=== PATIENT | male | born 1940 | race Caucasian/White ===

== ENCOUNTER 2019-12-15 11:11 | Outpatient (CLI) | payer MEDICARE, BC ==
[~2019-12-15 11:11] MED LIST: REGADENOSON 0.4 MG/5 ML SYRINGE ONE
[2019-12-15 13:12] LABS: ALANINE AMINOTRANSFERASE 24 U/L (12-78); ALBUMIN 3.8 g/dL (3.4-5.0); ANION GAP 5 mmol/L (5-15); CALCIUM 9.6 mg/dL (8.5-10.1); CHLORIDE 109 mmol/L (98-107)
[2019-12-15 13:15] LABS: ALKALINE PHOSPHATASE 137 U/L (45-117); CHOL/HDL RATIO 2.2; CHOLESTEROL, TOTAL 115 mg/dL (140-239); CREATININE 1.43 mg/dL (0.7-1.3); HDL CHOL % 45 % (26-37); HDL CHOLESTEROL (DIRECT) 52 mg/dL (40-60); LDL CHOLESTEROL,CALCULATED 50 mg/dL (54-169); TOTAL PROTEIN 7.7 g/dL (6.4-8.2); TRIGLYCERIDES 64 mg/dL (50-200); VLDL CHOLESTEROL 13 mg/dL (0-25)
[2020-01-09] MEDS ORDERED: OMEP20TA62 PO (00:40)
[2020-01-09] MEDS ORDERED: CIPR500T87 PO (12:06)
== END 2019-12-15 23:59 | disposition home or self-care (01) ==
LOC: CFH 11:11
PROVIDERS: ATTEND Internal Medicine Cardiovascular Disease
DX: I48.91 Unspecified atrial fibrillation (principal); I25.2 Old myocardial infarction; E78.2 Mixed hyperlipidemia; I71.4 Abdominal aortic aneurysm, without rupture; I10 Essential (primary) hypertension; R01.1 Cardiac murmur, unspecified
CPT/HCPCS: 36415; 78452; 80053; 80061; 93017; A9502; J2785

== ENCOUNTER → 2019-12-17 | Outpatient (CLI) | payer MEDICARE, BC | END | disposition home or self-care (01) | LOC: CFH 08:26 | PROVIDERS: ATTEND Internal Medicine Cardiovascular Disease | DX: I08.3 Combined rheumatic disorders of mitral, aortic and tricuspid valves (principal); I48.91 Unspecified atrial fibrillation; I11.9 Hypertensive heart disease without heart failure | CPT/HCPCS: 93306 ==

== ENCOUNTER 2019-12-22 08:53 | Day surgery (SDC) | payer MEDICARE, BC ==
[~2019-12-22] VITALS: Ht 179.1 cm; Wt 77.3 kg
[2019-12-22] MEDS ORDERED: SODIUM CHLORIDE 0.9% 1,000 ML IV SCH ×2 (09:17→12:29)
[2019-12-22 09:27] VITALS: BP 145/69
[2019-12-22] MEDS ORDERED: ALBU8.5H8 INH (09:41)
[2019-12-22] MEDS ORDERED: APIX5TAB PO (09:41)
[2019-12-22] MEDS ORDERED: OXYC-307 PO (09:41)
[2019-12-22] MEDS ORDERED: QUIN40TA15 PO (09:41)
[2019-12-22] MEDS ORDERED: OMEP20TA62 PO (09:41)
[2019-12-22] MEDS ORDERED: SIMV20TA19 PO (09:41)
[2019-12-22] MEDS ORDERED: DOCU-180 PO ×2 (09:41)
[2019-12-22] MEDS ORDERED: DILT240C47 PO (09:41)
[2019-12-22] MEDS ORDERED: TRIA1TAB3 PO (09:41)
[2019-12-22] MEDS ORDERED: BIFI4CAP PO (09:41)
[2019-12-22] MEDS ORDERED: POLY17PO5 PO (09:41)
[2019-12-22] MEDS ORDERED: GLUC1TAB27 PO (09:41)
[2019-12-22] MEDS ORDERED: SAW500CA PO (09:41)
[2019-12-22 09:59] LABS: BASOPHILS # (AUTO) 0.03 x10^3/uL (0-0.1); BASOPHILS % (AUTO) 0 % (0-1); EOSINOPHILS # (AUTO) 0.08 x10^3/uL (0-0.4); EOSINOPHILS % (AUTO) 1 % (1-7); LYMPHOCYTES % (AUTO) 20 % (22-44); MD NO; MEAN CORPUSCULAR HEMOGLOBIN 33.6 pg (27.5-34.5); MEAN CORPUSCULAR HGB CONC 32.5 g/dL (33.2-36.2); MEAN CORPUSCULAR VOLUME 103.2 fL (81-97); MEAN PLATELET VOLUME 7.3 fL (7.4-10.4); MONOCYTES # (AUTO) 0.75 x10^3/uL (0.2-0.8); MONOCYTES % (AUTO) 9 % (2-9); NEUTROPHILS # (AUTO) 6.12 x10^3/uL (1.8-6.8); NEUTROPHILS % (AUTO) 71 % (42-75); PLATELET COUNT 263 x10^3/uL (130-400); RED BLOOD COUNT 4.84 x10^6/uL (4.38-5.82); RED CELL DISTRIBUTION WIDTH 13.8 % (9.4-14.8)
[2019-12-22] MEDS ORDERED: PLEASE ENTER HEIGHT AND WEIGHT MC SCH (10:00)
[2019-12-22 10:09] LABS: ANION GAP 8 mmol/L (5-15); CHLORIDE 108 mmol/L (98-107); CREATININE 1.42 mg/dL (0.7-1.3)
[2019-12-22] MEDS ORDERED: MIDAZOLAM 1 MG/ML, 5ML ONE (11:29)
[2019-12-22] MEDS ORDERED: HEPARIN 1,000 UNITS/ML, 10ML ONE (11:29)
[2019-12-22] MEDS ORDERED: FENTANYL PF 250 MCG/5ML ONE (11:29)
[2019-12-22] MEDS ORDERED: LIDOCAINE-MPF 1%, 5ML ONE (11:29)
[2019-12-22] MEDS ORDERED: BIVALIRUDIN 250 MG ONE (11:29)
[2019-12-22] MEDS ORDERED: VERAPAMIL 2.5 MG/ML, 2ML ONE (11:29)
== END 2019-12-22 15:11 | disposition home or self-care (01) ==
LOC: CACL 08:53
PROVIDERS: ATTEND Internal Medicine
DX: I34.0 Nonrheumatic mitral (valve) insufficiency (principal); I25.10 Atherosclerotic heart disease of native coronary artery without angina pectoris; I25.84 Coronary atherosclerosis due to calcified coronary lesion; I10 Essential (primary) hypertension; I48.91 Unspecified atrial fibrillation; E78.2 Mixed hyperlipidemia; Z79.01 Long term (current) use of anticoagulants; Z79.891 Long term (current) use of opiate analgesic; Z79.899 Other long term (current) drug therapy; Z87.891 Personal history of nicotine dependence; Z98.890 Other specified postprocedural states
CPT/HCPCS: 36415; 80048; 85025; 93458; 99156; C1769; C1894; J1644; J2250; J3010; Q9967; J0583

== ENCOUNTER 2019-12-30 08:00 | Outpatient (CLI) | payer MEDICARE, BC ==
[~2019-12-30 08:00] MED LIST changes: +ALBU8.5H8 INH; +APIX5TAB PO; +BIFI4CAP PO; +DILT240C47 PO; +DOCU-180 PO; +GLUC1TAB27 PO; +OMEP20TA62 PO; +OXYC-307 PO; +POLY17PO5 PO; +QUIN40TA15 PO; -REGADENOSON 0.4 MG/5 ML SYRINGE ONE; +SAW500CA PO; +SIMV20TA19 PO; +TRIA1TAB3 PO
[2020-01-09] MEDS ORDERED: OMEP20TA62 PO (00:40)
[2020-01-09] MEDS ORDERED: CIPR500T87 PO (12:06)
== END 2019-12-30 23:59 | disposition home or self-care (01) ==
LOC: CARD 08:00
PROVIDERS: ATTEND Internal Medicine Cardiovascular Disease
DX: J44.9 Chronic obstructive pulmonary disease, unspecified (principal); I34.0 Nonrheumatic mitral (valve) insufficiency; I65.29 Occlusion and stenosis of unspecified carotid artery
CPT/HCPCS: 94060; 94726; 94729

== ENCOUNTER → 2020-01-06 | Outpatient (CLI) | payer MEDICARE, BC ==
[~2020-01-06] MED LIST changes: +CIPR500T87 PO
== END | disposition home or self-care (01) ==
LOC: STAR 08:00
PROVIDERS: ATTEND Internal Medicine Cardiovascular Disease
DX: Z01.818 Encounter for other preprocedural examination (principal); Z11.59 Encounter for screening for other viral diseases
CPT/HCPCS: 36415; 87635

== ENCOUNTER 2020-01-10 05:41 | Day surgery (SDC) | payer MEDICARE, BC ==
[~2020-01-10] VITALS: Ht 179.1 cm; Wt 77.3 kg
[2020-01-10 06:10] VITALS: BP 106/55
[2020-01-10] MEDS ORDERED: SODIUM CHLORIDE 0.9% 1,000 ML IV SCH (06:30)
[2020-01-10] MEDS ORDERED: PROPOFOL 10 MG/ML, 100ML IV ONE (07:42)
== END 2020-01-10 10:55 | disposition home or self-care (01) ==
LOC: CACL 05:41
PROVIDERS: ATTEND Internal Medicine Cardiovascular Disease
DX: I34.8 Other nonrheumatic mitral valve disorders (principal); I35.1 Nonrheumatic aortic (valve) insufficiency; I48.91 Unspecified atrial fibrillation; I10 Essential (primary) hypertension; E78.2 Mixed hyperlipidemia; I25.10 Atherosclerotic heart disease of native coronary artery without angina pectoris; Z79.01 Long term (current) use of anticoagulants; Z79.899 Other long term (current) drug therapy; Z87.891 Personal history of nicotine dependence
CPT/HCPCS: 93312; 93321; 93325; J2704; 36415; 87635

== ENCOUNTER 2020-01-14 12:37 | Outpatient (CLI) | payer MEDICARE, BC | END 2020-01-14 23:59 | disposition home or self-care (01) | LOC: STAR 12:37 | PROVIDERS: ATTEND Anesthesiology | DX: Z01.818 Encounter for other preprocedural examination (principal); Z11.59 Encounter for screening for other viral diseases | CPT/HCPCS: 36415; 87635 ==

== ENCOUNTER → 2020-02-17 | Outpatient (CLI) | payer MEDICARE, BC | END | disposition home or self-care (01) | LOC: CVU 10:08 | PROVIDERS: ATTEND Internal Medicine Cardiovascular Disease | DX: Z01.810 Encounter for preprocedural cardiovascular examination (principal); I08.3 Combined rheumatic disorders of mitral, aortic and tricuspid valves; R06.02 Shortness of breath | CPT/HCPCS: 93306 ==

== ENCOUNTER 2020-02-25 16:23 | Emergency (ER) | payer MEDICARE, BC ==
[~2020-02-25] VITALS: Ht 177.8 cm; Wt 75.0 kg
--- NOTE | 2020-02-25 16:40 | NUR ---
PT C/O ABD PAIN STARTING TODAY 1400. PT STATES FEELS BETTER AFTER HAVING LARGE BM UPON ARRIVAL TO HOSPITAL. PT CONNECTED TO MONITORING. CALL LIGHT IN REACH. AWAITING ORDERS.
[2020-02-25 18:13] VITALS: BP 133/63
--- NOTE | 2020-02-25 18:14 | NUR ---
XRAY COMPLETE. LAB AT BEDSIDE. PT RESTING COMFORTABLY ON GURNEY. MARNIEN.
[2020-02-25 18:30] LABS: BASOPHILS # (AUTO) 0.01 x10^3/uL (0-0.1); BASOPHILS % (AUTO) 0 % (0-1); EOSINOPHILS # (AUTO) 0.02 x10^3/uL (0-0.4); EOSINOPHILS % (AUTO) 0 % (1-7); LYMPHOCYTES # (AUTO) 1.15 x10^3/uL (1-3.4); LYMPHOCYTES % (AUTO) 9 % (22-44); MD NO; MEAN CORPUSCULAR HEMOGLOBIN 33.8 pg (27.5-34.5); MEAN CORPUSCULAR HGB CONC 33.2 g/dL (33.2-36.2); MEAN PLATELET VOLUME 7.2 fL (7.4-10.4); MONOCYTES # (AUTO) 0.49 x10^3/uL (0.2-0.8); MONOCYTES % (AUTO) 4 % (2-9); NEUTROPHILS # (AUTO) 10.96 x10^3/uL (1.8-6.8); NEUTROPHILS % (AUTO) 87 % (42-75); PLATELET COUNT 251 x10^3/uL (130-400); RED BLOOD COUNT 4.83 x10^6/uL (4.38-5.82); RED CELL DISTRIBUTION WIDTH 14.6 % (9.4-14.8)
[2020-02-25 18:41] LABS: ALBUMIN 3.4 g/dL (3.4-5.0); ANION GAP 9 mmol/L (5-15); CALCIUM 8.7 mg/dL (8.5-10.1); CHLORIDE 109 mmol/L (98-107)
[2020-02-25 18:45] LABS: ALANINE AMINOTRANSFERASE 17 U/L (12-78); ALKALINE PHOSPHATASE 133 U/L (45-117); BILIRUBIN,TOTAL 0.6 mg/dL (0.2-1.0); TOTAL PROTEIN 7.2 g/dL (6.4-8.2)
== END 2020-02-25 20:03 | disposition home or self-care (01) ==
LOC: ED 19:07
DX: R19.7 Diarrhea, unspecified (principal); R11.2 Nausea with vomiting, unspecified; R10.30 Lower abdominal pain, unspecified; I10 Essential (primary) hypertension; I48.91 Unspecified atrial fibrillation; E78.5 Hyperlipidemia, unspecified; Z87.891 Personal history of nicotine dependence
CPT/HCPCS: 36415; 74021; 80053; 83690; 85025; 99284

== ENCOUNTER → 2020-03-27 | Outpatient (CLI) | payer MEDICARE, BC | END | disposition home or self-care (01) | LOC: CVU 07:27 | PROVIDERS: ATTEND Internal Medicine Cardiovascular Disease | DX: I70.203 Unspecified atherosclerosis of native arteries of extremities, bilateral legs (principal); I71.4 Abdominal aortic aneurysm, without rupture; R53.1 Weakness | CPT/HCPCS: 93922; 93925; 93978 ==

== ENCOUNTER 2020-07-28 08:43 | Outpatient (CLI) | payer MEDICARE, BC ==
[~2020-07-28 08:43] MED LIST changes: +DILT-88 PO; -DILT240C47 PO; -OXYC-307 PO; +OXYC-380 PO
[2020-07-28] MEDS ORDERED: ATOR20TA37 PO (10:18)
[2020-07-28] MEDS ORDERED: GUAI400T81 PO (10:18)
[2020-07-28] MEDS ORDERED: CHOL10003 PO (10:18)
[2020-07-28 10:29] LABS: ALBUMIN 3.8 g/dL (3.4-5.0); ANION GAP 6 mmol/L (5-15); CALCIUM 9.3 mg/dL (8.5-10.1); CHLORIDE 106 mmol/L (98-107)
[2020-07-28 10:32] LABS: ALANINE AMINOTRANSFERASE 14 U/L (12-78); ALKALINE PHOSPHATASE 143 U/L (45-117); CREATININE 1.36 mg/dL (0.7-1.3); TOTAL PROTEIN 7.4 g/dL (6.4-8.2)
== END 2020-07-28 23:59 | disposition home or self-care (01) ==
LOC: STAR 08:43
PROVIDERS: ATTEND Colon & Rectal Surgery
DX: Z01.812 Encounter for preprocedural laboratory examination (principal); Z20.822 Contact with and (suspected) exposure to COVID-19; I45.10 Unspecified right bundle-branch block; I48.91 Unspecified atrial fibrillation
CPT/HCPCS: 80053; 87635; 93005

== ENCOUNTER 2020-08-03 07:24 | Day surgery (SDC) | payer MEDICARE, BC ==
[~2020-08-03] VITALS: Ht 176.5 cm; Wt 74.5 kg
[~2020-08-03 07:24] MED LIST changes: +ATOR20TA37 PO; +CHOL10003 PO; +GUAI400T81 PO
[2020-08-03 07:53] VITALS: BP 129/81
[2020-08-03] MEDS ORDERED: CHLORHEXIDINE 15 ML UDC MM ONE (08:00)
[2020-08-03] MEDS ORDERED: LACTATED RINGERS 1,000 ML IV SCH (08:00)
[2020-08-03] MEDS ORDERED: FENTANYL PF 250 MCG/5ML ONE (08:25)
[2020-08-03] MEDS ORDERED: MIDAZOLAM 1 MG/ML, 2ML ONE (08:25)
[2020-08-03] MEDS ORDERED: LIDOCAINE-MPF 2% ,5ML ONE (08:25)
[2020-08-03] MEDS ORDERED: PROPOFOL 10 MG/ML, 20ML ONE (08:25)
[2020-08-03] MEDS ORDERED: hydrALAzine 20 MG/ML, 1ML IV PRN (08:30)
[2020-08-03] MEDS ORDERED: ACETAMINOPHEN 325 MG TABLET PO PRN (08:30)
[2020-08-03] MEDS ORDERED: ONDANSETRON 2MG/ML, 2ML IVPush PRN (08:30)
[2020-08-03] MEDS ORDERED: METOCLOPRAMIDE 5 MG/ML, 2ML IVPush PRN (08:30)
[2020-08-03] MEDS ORDERED: HYDROcodone/APAP 7.5-325MG/15ML UDC PO PRN (08:30)
[2020-08-03] MEDS ORDERED: EPHEDRINE 50 MG/ML, 1ML IM PRN (08:30)
[2020-08-03] MEDS ORDERED: METHOCARBAMOL 1,000 MG in DEXTROSE 5% 100 ML IV PRN (08:30)
[2020-08-03] MEDS ORDERED: EPHEDRINE 50 MG/ML, 1ML IVPush PRN (08:30)
[2020-08-03] MEDS ORDERED: LORazepam 2 MG/ML, 1ML IVPush PRN (08:30)
[2020-08-03] MEDS ORDERED: DIAZEPAM 5 MG/ML, 2ML IVPush PRN (08:30)
[2020-08-03] MEDS ORDERED: ALBUTEROL SULFATE 2.5 MG/3 ML NPPB PRN (08:30)
[2020-08-03] MEDS ORDERED: HALOPERIDOL 5 MG/ML IV PRN (08:30)
[2020-08-03] MEDS ORDERED: DIPHENHYDRAMINE 50 MG/ML, 1ML IVPush PRN (08:30)
[2020-08-03] MEDS ORDERED: HYDROmorphone 1 MG/ML, 1ML INJ IVPush PRN (08:30)
[2020-08-03] MEDS ORDERED: LABETALOL 5MG/ML, 20ML IV PRN (08:30)
[2020-08-03] MEDS ORDERED: OXYcodone 5 MG/5 ML ORAL.SOL UDC PO PRN (08:30)
[2020-08-03] MEDS ORDERED: MIDAZOLAM 1 MG/ML, 2ML IV PRN (08:30)
[2020-08-03] MEDS ORDERED: DEXAMETHASONE 4 MG/ML, 5ML ONE (09:19)
[2020-08-03] MEDS ORDERED: GLYCOPYRROLATE 0.2MG/1ML, 5ML ONE (09:19)
[2020-08-03] MEDS ORDERED: ROCURONIUM 10MG/ML,5ML ONE (09:19)
[2020-08-03] MEDS ORDERED: BUPIVACAINE/PF-EPI 0.5% 1:200K ONE (09:36)
[2020-08-03] MEDS ORDERED: ACETAMINOPHEN 650 MG/20.3 ML UDC ONE (11:11)
[2020-08-03] MEDS ORDERED: OXYcodone 5 MG/5 ML ORAL.SOL UDC ONE ×2 (11:11→11:15)
[2020-08-03] MEDS: FENTANYL PF 100 MCG/2ML IV PRN ×2 (11:20→11:40)
[2020-08-03] MEDS ORDERED: FENTANYL PF 100 MCG/2ML ONE (11:24)
[2020-08-03] MEDS ORDERED: HYDROmorphone 1 MG/ML, 1ML INJ ONE (12:02)
[2020-08-03] MEDS ORDERED: OXYC1TAB14 PO (12:49)
== END 2020-08-03 14:35 | disposition home or self-care (01) ==
LOC: OUT 07:24
PROVIDERS: ATTEND Colon & Rectal Surgery
DX: K40.90 Unilateral inguinal hernia, without obstruction or gangrene, not specified as recurrent (principal); K21.9 Gastro-esophageal reflux disease without esophagitis; I10 Essential (primary) hypertension; I48.92 Unspecified atrial flutter; E78.5 Hyperlipidemia, unspecified; J45.909 Unspecified asthma, uncomplicated; Z79.01 Long term (current) use of anticoagulants; Z79.899 Other long term (current) drug therapy; Z98.890 Other specified postprocedural states
CPT/HCPCS: 49650; C1727; C1781; J1100; J2250; J2704; J3010; J7120